=== PATIENT | female | born 1990 | race Caucasian/White ===

== ENCOUNTER 2023-07-10 14:14 | Emergency (ER) | payer BC, OTHER ==
[2023-07-10] MEDS ORDERED: Ibuprofen 600 MG TAB ONE (14:58)
== END 2023-07-10 15:23 | disposition home or self-care (01) ==
LOC: MADERS 14:14
DX: S86.011A Strain of right Achilles tendon, initial encounter (principal); S90.31XA Contusion of right foot, initial encounter; W55.12XA Struck by horse, initial encounter